=== PATIENT | male | born 1975 | race Caucasian/White ===

== ENCOUNTER 2017-10-16 05:52 | Inpatient (IN) | payer OTHER, MEDICAID ==
[~2017-10-16] VITALS: Ht 175.3 cm; Wt 75.7 kg
[2017-10-16 05:55] VITALS: BP_SYST 182
--- NOTE | 2017-10-16 05:55 | NUR ---
Placed in room 06 . Placed on cardiac technologist, blood pressure machine and pulse oximeter. To gown for exam. Side rails up. Report given to DELIO Du.
--- NOTE | 2017-10-16 05:58 | NUR ---
Patient AAOx4, ambulatory. Patient states having cough and SOB for approximately 4 hours prior to ER visit; patient states having blood in sputum when coughing. Patient also states having new onset of chest pain with pain scale 8/10 at this time. Patient states pain does not radiate and is located at center area of chest. Patient denies any other complaints.
--- NOTE | 2017-10-16 06:00 | NUR ---
CHRIS Houston at bedside examining patient.
[2017-10-16] MEDS ORDERED: ONDANSETRON HCL 4 MG/2 ML VIAL IVP ONE (06:15)
[2017-10-16] MEDS ORDERED: NITROGLYCERIN 0.4 MG TAB.SUBL SL ONE (06:15)
[2017-10-16] MEDS ORDERED: ASPIRIN 325 MG TABLET (ECOTRIN) PO ONE (06:15)
[2017-10-16] MEDS ORDERED: ALBUTEROL SULFATE 0.083% 2.5 MG/3 ML VIAL.NEB INH ONE ×2 (06:15→07:30)
--- NOTE | 2017-10-16 06:18 | NUR ---
# 20 gauge angiocath placed to right forearm. Use of asceptic technique. Blood return noted. Blood for lab drawn from site. Flushed with 10 cc of normal saline. No evidence of infiltration noted. Patient tolerated well.
--- NOTE | 2017-10-16 06:42 | NUR ---
Patient moved to ER bed 8 via [facility]. Patient placed on airborne isolation.
[2017-10-16] MEDS ORDERED: OCTREOTIDE ACETATE 50 MCG/ML AMP IVP ONE (06:45)
[2017-10-16] MEDS ORDERED: FAMOTIDINE PF 20 MG/2 ML VIAL IVP ONE (06:45)
[2017-10-16 06:57] LABS: BASOPHILS # (AUTO) 0.1 K/uL (0.0-0.2); BASOPHILS % (AUTO) 0.6 % (0.0-2.0); HEMATOCRIT 44.1 % (36-54); HEMOGLOBIN 14.1 g/dL (14.0-18.0); LYMPHOCYTES # (AUTO) 0.7 K/uL (1.0-5.5); LYMPHOCYTES % (AUTO) 5.8 % (20.5-51.5); MEAN CORPUSCULAR HEMOGLOBIN 31 pg (27-31); MEAN CORPUSCULAR HGB CONC 32 % (32-36); MEAN CORPUSCULAR VOLUME 97 fL (79.0-98.0); MONOCYTES # (AUTO) 0.6 K/uL (0.0-1.0); MONOCYTES % (AUTO) 5.3 % (1.7-9.3); NEUTROPHILS # (AUTO) 10.2 K/uL (1.8-7.7); NEUTROPHILS % (AUTO) 88.3 % (40.0-70.0); PLATELET COUNT (AUTO) 142 K/uL (130-430); RED BLOOD CELL COUNT(AUTO) 4.56 MIL/uL (4.2-6.2); RED CELL DISTRIBUTION WIDTH 15.1 % (9.0-15.0); WHITE BLOOD COUNT (AUTO) 11.6 K/uL (4.8-10.8)
--- NOTE | 2017-10-16 06:59 | NUR ---
Asked patient for a list of his medications; patient states he takes "3 blood pressure medications but cannot remember the names". Unable to complete medication reconciliation at this time.
[2017-10-16 07:19] LABS: CALCIUM 9.9 mg/dL (8.4-11.0)
--- NOTE | 2017-10-16 07:22 | NUR ---
Care endorsed to day shift RN.
--- NOTE | 2017-10-16 07:25 | NUR ---
Report was given by DELIO Tavarez.
[2017-10-16 07:27] LABS: POTASSIUM 7.2 mmol/L (3.5-5.1)
[2017-10-16 07:28] LABS: CREATININE 15.3 mg/dL (0.55-1.30)
[2017-10-16] MEDS ORDERED: DEXTROSE 50% JECT 50 ML DISP.SYRIN IVP ONE (07:30)
[2017-10-16] MEDS ORDERED: SODIUM POLYSTYRENE SULFONATE 15 GM/60 ML UDBTL PO ONE (07:30)
[2017-10-16] MEDS ORDERED: CALCIUM CHLORIDE 1 GM/10 ML DISP.SYRIN (14 mEq Ca++/SYR) IVP ONE (07:30)
[2017-10-16] MEDS ORDERED: INSULIN REGULAR, HUMAN 10 UNITS/0.1 ML INJ IVP ONE (07:30)
[2017-10-16 07:44] LABS: TOTAL BILIRUBIN 0.7 mg/dL (0.0-1.0)
[2017-10-16 07:45] LABS: ALBUMIN 3.6 g/dL (3.4-4.8)
[2017-10-16] MEDS ORDERED: LEVOFLOXACIN 500 MG/D5W 100 ML IV ONE (08:15)
--- NOTE | 2017-10-16 08:17 | NUR ---
Medication was given, pt tolerated well. No adverse reaction, will continue to monitor.
--- NOTE | 2017-10-16 08:25 | NUR ---
Medication was given, pt tolerated well. No adverse reaction, will continue to monitor.
--- NOTE | 2017-10-16 09:22 | NUR ---
Pt states is Full Code.
[2017-10-16] MEDS ORDERED: BENA20TA2 PO (09:45)
[2017-10-16] MEDS ORDERED: LABE200T28 PO (09:45)
[2017-10-16] MEDS ORDERED: AMLO5TAB4 PO (09:45)
[2017-10-16] MEDS ORDERED: SEVE800T8 PO (09:45)
[2017-10-16] MEDS ORDERED: PHO667 PO (09:45)
--- NOTE | 2017-10-16 09:45 | NUR ---
Patient will be admitted to care of Dr. Crook. Admitted to Telemetry unit. Will go to room 106 B. Belongings list completed. Summary report printed. Report will be given at bedside.
--- NOTE | 2017-10-16 09:46 | NUR ---
[facility] Any prior medication reconciliation on file was reviewed and corrected.
--- NOTE | 2017-10-16 09:48 | NUR ---
Admission Note Received patient from ER with diagnosis of Influenza A/Pneumonia. Initial Plan of Care discussed-patient verbalized understanding. Oriented to room, call light, pain management and safety.
[2017-10-16 10:02] VITALS: BP_SYST 154
--- NOTE | 2017-10-16 10:08 | NUR ---
Nephrology consult Spoke to Rosie for stat consult , Dr. Sheldon called back within the hospital to see patient.
--- NOTE | 2017-10-16 10:15 | NUR ---
INITIAL NOTE: RECEIVED REPORT FROM ENRIQUE ROMANO RN. PT POSITIVE FOR INFLUENZA A/PNEUMONIA. PT WAS IN ROOM 106B, MOVED TO 111A FOR DROPLET ISOLATION. PT IS A & o X 4, AMBULATORY. SL. ON O2. COUGHING UP THIN BLOOD TINGED SPUTUM. PT IN NEED OF DIALYSIS DUE TO ELEVATED K LEVEL. PT RECEIVED K EXELATE IN ED AND STARTED HAVING BM. WILL CONTINUE TO MONITOR.
[2017-10-16 10:18] VITALS: BP_SYST 154
--- NOTE | 2017-10-16 10:25 | NUR ---
PATIENT MOVED TO ISOLATION ROOM/DROPLET PRECAUTIONS PATIENT MOVED TO ROOM 115 FOR ISOLATION FOR INFLUENZA A. PT'S BROTHER, HERBER, CALLED ON THE PHONE. INFORMED PT. OK TO GIVE UPDATE TO BROTHER. INFORMED HERBER THAT PT WAS MOVED TO ROOM 115 AND WOULD BE IN ISOLATION, AND DROPLET PRECAUTIONS. WOULD NEED TO WEAR PPE AND N95 MASK IF COMING TO VISIT. HERBER WILL NOTIFY FAMILY.
[2017-10-16] MEDS ORDERED: SEVELAMER CARBONATE 2400 MG PO SCH (10:30)
--- NOTE | 2017-10-16 10:35 | NUR ---
STAT NEPHROLOGY CONSULT WAS CALLED TO DR Payam VICTOR, RE: ESRD, RENAL FAILURE, K OF 7.3. SPOKE TO CODY
[2017-10-16] MEDS ORDERED: TEMAZEPAM 15 MG CAPSULE PO PRN (10:45)
[2017-10-16] MEDS ORDERED: IPRATROPIUM BROM 0.5 MG/2.5 ML VIAL.NEB (ATROVENT) INH PRN (10:45)
[2017-10-16] MEDS ORDERED: ALBUTEROL SULFATE 0.083% 2.5 MG/3 ML VIAL.NEB INH PRN (10:45)
[2017-10-16 12:00] VITALS: BP_SYST 177
--- NOTE | 2017-10-16 12:35 | NUR ---
PATIENT TO RECEIVE STAT DIALYSIS DIALYSIS NURSE, JUSTINA TO DIALYZE PATIENT. FIELD ENGINEER, AILYN AWARE. WILL CONTINUE TO MONITOR.
[2017-10-16 14:28] VITALS: BP_SYST 177
--- NOTE | 2017-10-16 14:35 | NUR ---
RN ROUNDS: PT STILL RECEIVING DIALYSIS. CONTINUES IN ISOLATION. WILL CONTINUE TO MONITOR.
--- NOTE | 2017-10-16 16:40 | NUR ---
DIALYSIS COMPLETED RECEIVED REPORT FROM ASSEMBLER INSTALLER STRUCTURESJUSTINA. TOOK 3.5 LITER OFF (ORDER WAS FOR 4). PT HYPERTENSIVE, SBP IN 160-170'S. BUT PT STATES THAT IS HIS BASELINE WHENEVER HE RECEIVES DIALYSIS. WILL CONTINUE TO MONITOR.
[2017-10-16] MEDS: CALCIUM ACETATE 667 MG CAP PO SCH ×2 (18:04→21:38)
[2017-10-16] MEDS: SEVELAMER HCL 800 MG TABLET PO SCH (18:07)
[2017-10-16] MEDS: methylPREDNISolone SOD SUCC/PF 62.5 MG/ML VIAL IVP SCH ×2 (18:09→21:39)
[2017-10-16 18:14] VITALS: BP_SYST 172
--- NOTE | 2017-10-16 18:14 | NUR ---
RN ROUNDS: PT CONTINUES TO BE HYPERTENSIVE, 172/122, RT ARM. PT STATES HE HAS NOT TAKEN HIS BLOOD PRESSURE MEDICATIONS IN TWO DAYS. PT GIVEN SOLUMEDROL AND WILL GET ABX. WILL PAGE DR. LÓPEZ AND ENDORSE TO NIGHTSHIFT RN. PT IS OTHERWISE STABLE. DROPLET PRECAUTIONS AND ISOLATION CONTINUE IN EFFECT.
--- NOTE | 2017-10-16 18:31 | NUR ---
paged paged for Dr Crook, dialed . s/w Jamila.
[2017-10-16] MEDS: cefTRIAXone 1 GM in D5W 50 ML IV SCH (20:05)
[2017-10-16] MEDS: ALBUTEROL SULFATE 0.083% 2.5 MG/3 ML VIAL.NEB INH SCH (20:11)
[2017-10-16] MEDS: IPRATROPIUM BROM 0.5 MG/2.5 ML VIAL.NEB (ATROVENT) INH SCH (20:12)
--- NOTE | 2017-10-16 20:13 | NUR ---
Opening Note Received patient and bed side report from day nurse. Will continue to monitor.
--- NOTE | 2017-10-16 20:30 | NUR ---
REFUSED SCDS Late entry due to patient care. Patient was educated on ordered SCDS risks and benefits but refused it at this time. Will encourage throughout shift.
[2017-10-16] MEDS: AZITHROMYCIN 500 MG in D5W 250 ML IV SCH (21:36)
[2017-10-16] MEDS: amLODIPine BESYLATE 5 MG TABLET PO SCH (21:52)
[2017-10-16] MEDS: LABETALOL HCL 100 MG TABLET PO SCH (21:53)
--- NOTE | 2017-10-16 22:51 | NUR ---
paged paged for Dr Crook, dialed . s/w Radha.
--- NOTE | 2017-10-16 23:00 | NUR ---
paged paged for Dr Doe, dialed . s/w Mer, stated Dr Eli Duran is on-call.
--- NOTE | 2017-10-16 23:01 | NUR ---
Paging Dr Crook For Pain Medication Paged Dr. Crook. Reported that patient is experiencing 10/10 pain to abdomen and complaining of constipation. Reported that patient received kayexelate in ER and patient does not have PRN medication. Also reported that patient is coughing up bloody sputum. Dr Crook stated to "call the garbage worker" and that he was aware of the bloody sputum. No new orders received. Paging garbage worker, will wait for Dr. Eli Duran to call back.
--- NOTE | 2017-10-17 00:23 | NUR ---
paged second page for Dr Doe, dialed . s/w Carline, stated Dr Eli Duran is on-call.
[2017-10-17 00:45] VITALS: BP_SYST 130
[2017-10-17] MEDS: IPRATROPIUM BROM 0.5 MG/2.5 ML VIAL.NEB (ATROVENT) INH SCH ×2 (00:56→07:52)
[2017-10-17] MEDS: ALBUTEROL SULFATE 0.083% 2.5 MG/3 ML VIAL.NEB INH SCH ×2 (00:56→07:52)
[2017-10-17] MEDS ORDERED: HYDROcodone/ACETAMIN 5-325 MG TAB (NORCO/ VICODIN) PO PRN (01:00)
[2017-10-17] MEDS ORDERED: MORPHINE 4 MG/ML INJ. SYRINGE IVP PRN (01:00)
--- NOTE | 2017-10-17 01:06 | NUR ---
REPORTED TO DR. FORD/NEW ORDERS RECEIVED Late entry due to patient care. Patient's "08/04" abdominal pain and "constipation" was reported to Dr. Ford. SBAR report was given to Dr. Eli Ford. ordered STAT KUB and PRN pain medications. See EMAR for details.
--- NOTE | 2017-10-17 02:03 | NUR ---
TELE LEADS Late entry due to patient care. Tele leads were adjusted and applied to patient.
--- NOTE | 2017-10-17 04:00 | NUR ---
ROUNDS Late entry due to patient care. Patient is resting with no s/s of acute distress. Safety, fall, isolation precautions are in place. Call light to right hand. Patient continues to refuse bed alarm. Will continue with plan of care.
[2017-10-17] MEDS: methylPREDNISolone SOD SUCC/PF 62.5 MG/ML VIAL IVP SCH ×2 (05:53→14:11)
--- NOTE | 2017-10-17 07:05 | NUR ---
CLOSING NOTES/DAILY WEIGHT Due meds were administered as ordered. Limb alert to left arm due to AV fistula was applied and sign applied to HOB. All needs met throughout shift. Daily weight was taken and charted; see interventions. Patient denies any needs at this time. All safety, fall, and isolation precautions were maintained. Will endorse care to oncoming day shift nurse.
--- NOTE | 2017-10-17 07:30 | NUR ---
ASSUMPTION OF CARE RECEIVED REPORT FROM NIGHT RN. PT IN BED AAOx4, ABLE TO VERBALIZE NEEDS. NO SIGNS DISTRESS NOTED. O2 SAT 95% ON 2LNC, PT DENIES SHORTNESS OF BREATH. PT STATES HIS COUGH HAS DIMINISHED SINCE YESTERDAY AND THAT HE IS NOT COUGHING UP BLOOD ANYMORE THIS MORNING. PT HAS MANOJ AV SHUNT, PT HAD DIALYSIS YESTERDAY PER NIGHT RN. 22G RIGHT FOREARM IV SALINE LOCK. PT DENIES PAIN AT THIS TIME. BED LOCKED AND IN LOWEST POSITION, CALL LIGHT IN REACH. WILL CONTINUE TO MONITOR.
[2017-10-17] MEDS: CALCIUM ACETATE 667 MG CAP PO SCH ×2 (08:38→14:10)
[2017-10-17] MEDS: SEVELAMER HCL 800 MG TABLET PO SCH ×3 (08:38→17:29)
[2017-10-17] MEDS: LABETALOL HCL 100 MG TABLET PO SCH (08:38)
[2017-10-17] MEDS: amLODIPine BESYLATE 5 MG TABLET PO SCH (08:38)
[2017-10-17 08:57] VITALS: BP_SYST 150
--- NOTE | 2017-10-17 10:05 | NUR ---
ROUNDS PT AWAKE IN BED WATCHING TV. NO SIGNS DISTRESS NOTED. WILL CONTINUE TO MONITOR.
--- NOTE | 2017-10-17 10:14 | NUR ---
MD ROUNDS DR CASPER HERE TO EVALUATE PT. NO NEW ORDERS RECEIVED AT THIS TIME.
--- NOTE | 2017-10-17 12:11 | NUR ---
ROUNDS PT AWAKE IN BED WATCHING TV. NO SIGNS DISTRESS NOTED. PT DENIES PAIN/SHORTNESS OF BREATH. WILL CONTINUE TO MONITOR.
[2017-10-17 12:34] VITALS: BP_SYST 145
[2017-10-17] MEDS: AZITHROMYCIN 500 MG in D5W 250 ML IV SCH (14:10)
--- NOTE | 2017-10-17 14:30 | NUR ---
ROUNDS PT IN BED WITH EYES CLOSED, RISE AND FALL OF CHEST NOTED, NO SIGNS DISTRESS NOTED. WILL CONTINUE TO MONITOR.
[2017-10-17] MEDS ORDERED: MORPHINE SULFATE 10 MG/ML VIAL IVP PRN (15:02)
[2017-10-17 15:04] LABS: ALBUMIN 2.6 g/dL (3.4-4.8); CALCIUM 9.3 mg/dL (8.4-11.0); TOTAL BILIRUBIN 0.5 mg/dL (0.0-1.0)
[2017-10-17] MEDS: cefTRIAXone 1 GM in D5W 50 ML IV SCH (15:07)
[2017-10-17 15:14] LABS: BASOPHILS % (AUTO) 0.2 % (0.0-2.0); HEMOGLOBIN 12.8 g/dL (14.0-18.0); LYMPHOCYTES # (AUTO) 0.6 K/uL (1.0-5.5); LYMPHOCYTES % (AUTO) 8.2 % (20.5-51.5); MEAN CORPUSCULAR HEMOGLOBIN 31 pg (27-31); MEAN CORPUSCULAR HGB CONC 33 % (32-36); MEAN CORPUSCULAR VOLUME 95 fL (79.0-98.0); MONOCYTES # (AUTO) 0.3 K/uL (0.0-1.0); MONOCYTES % (AUTO) 3.9 % (1.7-9.3); NEUTROPHILS % (AUTO) 87.7 % (40.0-70.0); PLATELET COUNT (AUTO) 115 K/uL (130-430); RED CELL DISTRIBUTION WIDTH 14.6 % (9.0-15.0); WHITE BLOOD COUNT (AUTO) 6.9 K/uL (4.8-10.8)
[2017-10-17 15:19] LABS: CREATININE 12.58 mg/dL (0.55-1.30)
[2017-10-17 16:21] VITALS: BP_SYST 152
--- NOTE | 2017-10-17 16:30 | NUR ---
PT WANTS TO LEAVE AMA. DR CHANEL IN ROOM EXPLAINING TO PT THE RISKS OF LEAVING AGAINST MEDICAL ADVICE. PT ADAMANT WANTS TO LEAVE DESPITE MEDICAL RECOMMENDATION TO STAY. PT SIGNED AMA FORM, PLACED IN PT'S CHART. PT CALLING FOR FAMILY MEMBER TO COME PICK HIM UP. DR CHANEL ORDERED KAYEXALATE TO BE GIVEN BEFORE PT LEAVES. Addendum: 10/17/17 at 1707 by Zoraida Saha RN DR CHANEL EXPLAINED TO PT THE CXR RESULTS AND NEED FOR ABX TX, PT STILL WANTS TO LEAVE AMA.
[2017-10-17] MEDS ORDERED: SODIUM POLYSTYRENE SULFONATE 15 GM/60 ML UDBTL ONE (16:54)
[2017-10-17] MEDS ORDERED: SODIUM POLYSTYRENE SULFONATE 15 GM/60 ML UDBTL PO ONE (17:15)
--- NOTE | 2017-10-17 17:19 | NUR ---
SPOKE TO DR FORD ON PHONE REGARDING PT. PT STATES THAT IF HE CAN GET DIALYSIS TONIGHT, HE WILL NOT GO AMA. PT STATES HE WOULD LIKE TO GET DIALYSIS TONIGHT SO HE DOES NOT HAVE TO GO TO SCHEDULED APPT TOMORROW. MADE DR FORD AWARE OF WHAT PT SAID, DR FORD WOULD RATHER PT GETS DIALYSIS TOMORROW AT SCHEDULED 2PM APPT. PT TOOK KAYEXALATE 30GM FOR POTASSIUM 6.0. MADE PT AWARE OF DISCUSSION WITH DR FORD, PT WANTS TO LEAVE AMA NOW.
--- NOTE | 2017-10-17 17:50 | NUR ---
AMA: Patient does not wish to proceed with medical care recommended by DR LÓPEZ/YANIQUE. Patient given information related to possible complications, up to and including , which could occur as a result of leaving hospital at this time. Patient verbalizes understanding of risks involved leaving against medical advice. Patient has signed AMA form.
--- NOTE | 2017-10-17 17:50 | NUR ---
PT LEFT AMA WITH PT'S SISTER. AMA FORM SIGNED AND PLACED IN CHART. ID BAND AND IV REMOVED. PT TAKEN OUT VIA WHEELCHAIR.
== END 2017-10-17 17:48 | disposition left against medical advice (07) | DRG 193 ==
LOC: SED 05:52 → STU 09:08
PROVIDERS: ADMIT Internal Medicine Hospice and Palliative Medicine; ATTEND Internal Medicine Hospice and Palliative Medicine
DX: J18.9 Pneumonia, unspecified organism (principal); N18.6 End stage renal disease; J96.01 Acute respiratory failure with hypoxia; I12.0 Hypertensive chronic kidney disease with stage 5 chronic kidney disease or end stage renal disease; I42.9 Cardiomyopathy, unspecified; E87.5 Hyperkalemia; Z53.21 Procedure and treatment not carried out due to patient leaving prior to being seen by health care provider; D63.1 Anemia in chronic kidney disease; Z87.891 Personal history of nicotine dependence; Z99.2 Dependence on renal dialysis
CPT/HCPCS: 36415; 36600; 71010; 74000-TC; 80053; 82803-TC; 82962; 83605; 83880; 84484; 85025; 85379; 86710; 87040-TC; 87081; 90935; 93005; 94640; 94760; 96365; 96375; 99285; J0456; J0696; J1815; J1956; J2270; J2354; J2405; J2930; J3490; J7030; J7040; J7060